=== PATIENT | male | born 1970 | race Caucasian/White ===

== ENCOUNTER 2025-02-20 05:55 | Emergency (ER) | payer MEDICAID, SELFPAY ==
[2025-02-20 05:56] VITALS: BMI 29.5
--- NOTE | 2025-02-20 05:57 | EKG_ITS ---
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
[2025-02-20 06:02] VITALS: BP 165/97; PULSE 84; RESP 16; TEMP 36.7; O2SAT 97
--- NOTE | 2025-02-20 06:19 | XR_ITS ---
Examination: AP chest single view Technique one AP portable upright chest single view Date and time: February 20 thousand 25, 5419 hrs., Comparison May 20, 2023 Indications: Substernal chest pain beginning 3 days ago Findings: Normal heart size. Lungs are clear. The osseous structures are intact Impression: No active disease
[2025-02-20] MEDS: RINGERS LACTATED 1000 ML 1,000 ML 999 ML IV (06:24)
[2025-02-20 06:33] VITALS: BP 150/106; PULSE 84; RESP 14; TEMP 36.6; O2SAT 95
[2025-02-20 06:36] LABS: Basophils # (Auto) 0.0 Thou/mm3 (0.0-0.2); Basophils % (Auto) 0 % (0-2.5); Eosinophils # (Auto) 0.1 Thou/mm3 (0.0-0.5); Eosinophils % (Auto) 0 % (0-10); Hematocrit 49.4 % (41.0-53.0); Hemoglobin 17.3 g/dL (13.5-16.0); Immature Granulocytes Auto 0.05 Thou/mm3 (0.00-0.00); Lymphocytes # (Auto) 1.6 Thou/mm3 (1.0-4.8); Lymphocytes % (Auto) 13 % (10-50); Mean Corpuscular HGB Conc 35.0 g/dl (31.0-37.0); Mean Corpuscular Hemoglobin 31.0 pg (25.0-35.0); Mean Corpuscular Volume 89 fL (80-100); Monocytes # (Auto) 0.7 Thou/mm3 (0.0-0.8); Monocytes % (Auto) 6 % (0-12); Neutrophils # (Auto) 9.8 Thou/mm3 (1.8-7.7); Neutrophils % (Auto) 80 % (37-80); Nucleated Red Blood Cell # 0.00 Thou/mm3 (0.00-0.00); Nucleated Red Blood Cell % 0 /100 WBC (0); Platelet Count 219 Thou/mm3 (140-440); RDW Standard Deviation 40.6 fL (35.1-43.9); Red Blood Count 5.58 Miln/mm3 (4.50-5.90); White Blood Count 12.1 Thou/mm3 (3.8-10.6)
[2025-02-20] MEDS: ONDANSETRON INJ 2 MG/ML INJ 2 ML 4 MG IVP (06:37)
--- NOTE | 2025-02-20 06:41 | PD.EDCHEST ---
ED Chest Pain RME/HPI General Chief Complaint: Chest Pain Stated Complaint: CHEST PAIN Time Seen by Provider: 02/20/25 06:14 Source: patient Arrival date/time: 02/20/25 05:55 Mode of arrival: ambulatory Limitations: no limitations RME / HPI RME / HPI narrative: Patient is a 54-year-old male with medical history notable for palpitations, hypertension that is in the emergency department with concerns for acute worsening of palpitations. Patient states that over the last 2 to 3 days he has had increased sensation that his heart is racing. Denies fevers however has had diarrhea, and vomiting. No sick contacts no recent travel. Patient states that he has been urinating frequently. Denies any cough, runny nose, dysuria, hematuria, melena, bloody stools. No drugs and alcohol no smoking. Patient also endorses mild epigastric pain. No surgeries. Related Data Home Medications ?Medication ?Instructions ?Recorded ?Confirmed ibuprofen 200 mg capsule (Motrin 200 mg PO QID PRN Pain 03/13/19 03/13/19 IB) Previous Rx's ?Medication ?Instructions ?Recorded sodium chloride 0.65 % nasal spray 3 spray intranasal QID PRN dry 07/03/22 aerosol (Saline Nasal) nasal passages #88 mL benzonatate 100 mg capsule 100 mg PO TID PRN cough #20 caps 05/20/23 Allergies Allergy/AdvReac Type Severity Reaction Status Date / Time No Known Allergies Allergy Verified 05/20/23 17:12 Review of Systems Review of Systems Systems Reviewed: All systems reviewed, normal except as documented Past Medical History Past Medical History CARDIAC: Negative Congestive Heart Failure RESPIRATORY: Negative Chronic Obstructive Pulmonary Disease (COPD) GENITOURINARY: Negative Renal Disease ENDOCRINE: Negative Diabetes Mellitus Type 1 or Diabetes Mellitus Type 2 Social History SMOKING STATUS: Never smoker SUBSTANCE USE: does not use ED Exam General Limitations: Present no limitations Head Head exam: Present atraumatic and normocephalic Eye Eye exam: Present normal appearance, PERRL and EOMI ENT ENT exam: Present normal exam, normal oropharynx and mucous membranes moist Neck Neck exam: Present normal inspection and full ROM Chest Chest inspection: Present normal inspection and symmetric chest wall rise; Absent tenderness Respiratory Respiratory exam: Present normal lung sounds bilaterally; Absent respiratory distress, wheezes or stridor Cardiovascular Cardiovascular exam: Present regular rate and normal rhythm Abdominal Exam Abdominal exam: Present soft and tenderness (Mild tenderness to palpation in the epigastrium); Absent distention or guarding Extremities Exam Extremities exam: Present normal inspection and full ROM Neurological Exam Neurological exam: Present alert, oriented X3, CN II-XII intact and normal gait Psychiatric Psychiatric exam: Present normal affect Skin Skin exam: Present warm Course Quality Measures none Orders Category Date Time Status Bedside COVID-19 Antigen Test NOW Care 02/20/25 06:19 Completed Bedside Influenza A&B Antigen Test NOW Care 02/20/25 06:19 Completed EKG (ED ONLY) *Do not use* NOW Care 02/20/25 05:57 Completed CXR [XR chest 1V] Stat Exams 02/20/25 06:19 Completed EKG (ED Only) Stat Exams 02/20/25 05:57 Draft US abdomen limited Stat Exams 02/20/25 06:42 Completed CBC Stat Lab 02/20/25 06:28 Completed CMP [Comprehensive Metabolic Panel] Stat Lab 02/20/25 06:28 Completed Lipase Stat Lab 02/20/25 06:28 Completed T4 (Thyroxine) Stat Lab 02/20/25 06:28 Completed TSH [Thyroid Stimulating Hormone] Stat Lab 02/20/25 06:28 Completed Troponin I Stat Lab 02/20/25 06:28 Completed Troponin I Stat Lab 02/20/25 08:45 Completed UA, C/S IF [Urinalysis, C/S if Indicated] Stat Lab 02/20/25 07:31 Completed Aspirin Chew Med 02/20/25 07:29 Discontinued 81 mg PO X1 ONE Lidocaine 2% Viscous [Xylocaine 2% Viscous] Med 02/20/25 07:32 Discontinued 15 ml PO X1 ONE Ondansetron Inj [Zofran Inj] Med 02/20/25 06:31 Discontinued 4 mg IVP X1 ONE Ringers Lactated 1000 ml [Lactated Ringers] 1,000 ml Med 02/20/25 06:19 Discontinued IV 999 mls/hr mg Hyd/Al Hyd/Clyde Susp [Maalox Susp] Med 02/20/25 07:32 Discontinued 30 ml PO X1 ONE Vital Signs Vital signs: Vital Signs Temperature 98.1 F 02/20/25 06:02 Pulse Rate 84 02/20/25 06:02 Respiratory Rate 16 02/20/25 06:02 Blood Pressure 165/97 H 02/20/25 06:02 Pulse Oximetry (%) 97 02/20/25 06:02 Oxygen Delivery Method Room Air 02/20/25 06:02 Pulse ox is 97% on room air which is adequate. Chest Pain [facility] Narrative [facility] Narrative:: Patient is a 54-year-old male with medical history notable for palpitations and hypertension is in emerged primary concerns for worsening palpitations. Vital signs and exam as listed. Concern for ACS arrhythmia electrolyte abnormality thyroid dysfunction pancreatitis cholelithiasis among others. Ordered labs EKG chest x-ray as well as right upper quadrant ultrasound. Patient is vomiting also ordered medication for symptom relief and fluids. Less likely PE given wells score 0.0. Labs with evidence of leukocytosis 12.1, no left shift. Patient hemoglobin 17. No significant acute electrolyte abnormality. Troponin not elevated. Thyroid studies unremarkable. Chest x-ray unremarkable. EKG performed today at 6:04 AM notable for sinus rhythm, normal intervals, nonspecific T wave changes, not a cardiac alert. Lipase not elevated. RUQ u/s with cholelithiasis. Second troponin not elevated. Was notified by nursing staff that patient was having palpitations, got a stat EKG patient has 1 PVC. On re-evaluation, patient HD stable, NAD. Advised patient to take his meds as prescribed, and establish care with a senior financial accountant this week for follow up. Patient symptoms resolved. Will dc to home. Patient data External records reviewed:: [facility] previous records Clinical information provided by:: patient Social determinants that could affect healthcare access:: none Patient has the following chronic illnesses:: See MDM How is presenting disease/condition affected by chronic disease/condition?: exacerbated by Evaluation data The following diagnostics were reviewed and interpreted by me:: lab results, radiology exam(s) and EKG tracing(s) Lab and/or radiology exams considered but not ordered:: None Interpretation Summary: See MDM Medications / Prescriptions Medications or Prescriptions considered but not ordered:: None Medication administrations:: Medication Administration History Discontinued Medications Al Hydrox/Mg Hydrox/Simethicone (Mg Hyd/Al Hyd/Clyde (Maalox Reg) Susp 30 Ml Udc) 30 ml PO X1 ONE Stop: 02/20/25 07:33 Last Admin: 02/20/25 08:49 Dose: 30 ml Documented By: JUVENCIO Aspirin (Aspirin 81 Mg Chew) 81 mg PO X1 ONE Stop: 02/20/25 07:30 Last Admin: 02/20/25 08:49 Dose: 81 mg Documented By: JUVENCIO Lactated Ringer's (Lactated Ringers) 1,000 mls @ 999 mls/hr IV .Q1H1M ONE Stop: 02/20/25 07:19 Last Infusion: 02/20/25 07:37 Dose: Infused Documented By: Admin: 02/20/25 06:24 Dose: 999 mls/hr Documented By: AINSLEY Lidocaine HCl (Lidocaine Viscous 2% 15 Ml Udc) 15 ml PO X1 ONE Stop: 02/20/25 07:33 Last Admin: 02/20/25 08:49 Dose: 15 ml Documented By: JUVENCIO Ondansetron HCl (Ondansetron Inj 2 Mg/Ml Inj 2 Ml) 4 mg IVP X1 ONE; Protocol Stop: 02/20/25 06:32 Last Admin: 02/20/25 06:37 Dose: 4 mg Documented By: AINSLEY See above Consultations Consultation(s) initiated? (list below): No Diagnosis Most likely diagnosis given after review of the tests above:: Chest palpitations Heart palpitations Cholelithiasis Diarrhea Admission Indicated Admission indicated?: not indicated Admission Request Was there a request for admission?: No Disposition Plan Disposition Plan: Discharge Discharge Attestation Discharge Attestation: The patient and all family members were given an opportunity to ask questions and understood the discharge instructions. Discharge instructions specifically effects, indications for sooner follow up or return to the emergency department, and the expected course of current diagnosis. Patient condition: Stable Discharge Plan Plan Patient Disposition: HOME (Self Care) Prescriptions/Referrals Prescriptions/Med Rec: No Action ibuprofen [Motrin IB] 200 mg Capsule 200 mg PO QID PRN (Reason: Pain) Saline Nasal 0.65 % aerosol,spray 3 spray intranasal QID PRN (Reason: dry nasal passages) Qty: 88 0RF benzonatate 100 mg capsule 100 mg PO TID PRN (Reason: cough) Qty: 20 0RF Referrals: No Primary/Family,Physician [Primary Care Provider] - In 1 week Problem List Clinical Impression: Chest pain, Heart palpitations, Cholelithiasis, Diarrhea Patient/Caregiver Discharge Instructions Education Materials: ED Gallstones with Biliary Colic Additional Instructions: Please follow-up with your primary care doctor within the next 1 to 2 days to discuss gallstones. It is important that you also continue discussing with your primary care doctor your palpitations. It is important that you stay well-hydrated. Your labs today were reassuring, your cardiac enzyme was normal on 2 separate assessments. For pain you can take Tylenol or ibuprofen at home. Print Language: Icelandic Stand Alone Forms: [employer]ann[employer] Award Info., Patient Portal Info Letter
--- NOTE | 2025-02-20 06:42 | XR_ITS ---
Examination: Abdomen sonogram, Limited Date and time of exam: February 20 thousand 25, 0753 hours INDICATIONS: Left upper abdominal pain beginning 3 days ago Technique: Real-time fletcher scale transabdominal sonographic images of the upper abdomen obtained. Findings: Cholelithiasis, normal gallbladder wall Normal common bile duct 0.3 cm Pancreatic head 2.9 cm Liver 15.8 cm fatty infiltration Normal hepatopedal portal venous flow Patent IVC IMPRESSION: Cholelithiasis, negative for cholecystitis
[2025-02-20 07:02] LABS: Alanine Aminotransferase 35 U/L (10-49); Albumin, Serum 4.6 gm/dL (3.5-5.0); Albumin/Globulin Ratio 1.6 (1.2-2.2); Alkaline Phosphatase 53 U/L (46-116); Anion Gap 8 (7-16); Aspartate Amino Transferase 22 U/L (0-34); BUN/Creatinine Ratio 8 Ratio (12-20); Bilirubin,Total 0.7 mg/dL (0.3-1.2); Blood Urea Nitrogen 9 mg/dL (9-23); Calcium 10.3 mg/dL (8.3-10.6); Calcium (Corrected) 10.3 mg/dL (8.5-10.1); Carbon Dioxide 31.2 mMol/L (20.0-31.0); Chloride 100 mMol/L (98-107); Creatinine (Component) 1.1 mg/dL (0.6-1.3); Estimated Creatinine Clearance 101.2 mL/min (>60); Globulin 2.9 gm/dL (2.3-3.5); Glucose 149 mg/dL (74-106); Lipase 34 U/L (12-53); Osmolality,Calculated 279 (275-295); Potassium 4.0 mMol/L (3.4-5.1); Sodium 139 mMol/L (136-145); T4 (Thyroxine) 6.2 mcg/dL (4.5-10.9); Thyroid Stimulating Hormone 3.26 uIU/mL (0.55-4.78); Total Protein 7.5 gm/dL (5.7-8.2); Troponin I < 0.002 ng/mL (0.0-0.045); eGFR > 60 See Note
[2025-02-20 07:19] VITALS: BP 167/92; PULSE 74; RESP 16; TEMP 36.4; O2SAT 97
[2025-02-20 08:05] LABS: Collection Type, Urine Clean Catch; Squamous Epithelial Cell,Urine 0 /hpf (0-5)
[2025-02-20 08:22] LABS: Bacteria,Urine Rare; Bilirubin,Urine Negative (Negative); Blood,Urine Trace (Negative); Clarity,Urine Clear (Clear/Hazy); Color,Urine Yellow (Lt Yel-Yel); Culture Indicated,Urine Not Indicated; Glucose, Urine Negative (Negative); Ketones,Urine Negative (Negative); Leukocyte Esterase,Urine Negative (Negative); Nitrite,Urine Negative (Negative); PH,Urine 6.5 (5.0-7.0); Protein,Urine Negative (Neg - Trace); RBC,Urine 5 /hpf (0-3); Specific Gravity,Urine 1.026 (1.001-1.035); Urobilinogen,Urine Negative mg/dL (0.0-1.0); WBC,Urine < 1 /hpf (0-5)
[2025-02-20] MEDS: ASPIRIN 81 MG CHEW PO (08:49)
[2025-02-20] MEDS: LIDOCAINE VISCOUS 2% 15 ML UDC PO (08:49)
[2025-02-20] MEDS: MG HYD/AL HYD/SIME (Maalox Reg) SUSP 30 ML UDC PO (08:49)
[2025-02-20 09:44] LABS: Troponin I < 0.020 ng/mL (0.0-0.045)
== END 2025-02-20 12:31 | disposition home or self-care (01) ==
PROVIDERS: Emergency Provider Emergency Medicine
DX: K80.70 Calculus of gallbladder and bile duct without cholecystitis without obstruction (principal); I49.3 Ventricular premature depolarization; R19.7 Diarrhea, unspecified; R00.2 Palpitations; R07.9 Chest pain, unspecified; I10 Essential (primary) hypertension
CPT/HCPCS: 36415; 71045; 76705; 80053; 81001; 83690; 84436; 84443; 84484; 85025; 85379; 87400; 87811; 93005; 99284; J2405; J3490; J7120; A9270